=== PATIENT | female | born 1965 | race Caucasian/White ===

== ENCOUNTER → 2020-11-04 | Day surgery (SDC) | payer MEDICARE, OTHER ==
[~2020-11-04] VITALS: Ht 172.7 cm; Wt 81.8 kg
[~2020-11-04] MED LIST: 3IN1 COMMODE; AMBIEN10 MG PO; ASPIRIN81 MG PO; BRILINTA90 MG PO; COLACE100 MG PO; COREG25 MG PO; CYMBALTA 30MG C30 MG PO; FLEXERIL10 MG PO; GLUCOPHAGE1000 MG PO; KLONOPIN0.5 MG PO; LASIX40 MG PO; LINZESS145 MCG PO; LUMIGAN5 ML OU; NEURONTIN600 MG PO; NITROQUIK SL0.4 MG SL; NITROSTAT0.4 MG SL; NORCO 5-325 TA1 EACH PO; NORCO 7.5-3251 EACH PO; NORVASC5 MG PO; NOVOLOG MI100 UNIT/1 SC; ONDANSETRON ODT8 MG PO; PHOSLO667 MG PO; PLAVIX75 MG PO; PRAVACHOL80 MG PO; PROBIOTIC1 EAC1 PO; RENVELA800 MG PO; SYNTHROID125 MCG PO; VENLAFAXINE HC150 MG PO; VICODIN 10/3251 EACH PO; VITAMIN B-125000 MC2 PO; ZANTAC150 MG PO; ZOFRAN4 MG PO
[2020-11-04 09:48] LABS: HCT 30.5 % (37.0-47.0); HGB 9.8 g/dl (12.5-16.0); MCH 32.1 pg (25.0-31.0); MCHC 32.1 g/dL (32.0-36.0); MPV 11.2 fL (6.0-9.5); RBC 3.05 M/uL (4.20-5.40); RDW 13.1 % (11.5-14.0); WBC 11.1 K/uL (4.0-10.5)
[2020-11-04 10:07] LABS: ALBUMIN 2.5 g/dL (3.4-5.0); BILIRUBIN - TOTAL 0.3 mg/dL (0.2-1.0); BUN/CREAT RATIO (CALC) 5.6 RATIO; CREATININE 7.35 mg/dL (0.51-0.95); GLOBULIN (CALCULATION) 3.7 g/dL; POTASSIUM 5.6 mmol/L (3.5-5.1); TOTAL PROTEIN 6.2 g/dL (6.4-8.2)
== END | disposition home or self-care (01) ==
LOC: FAS 08:54
PROVIDERS: Surgery
DX: K80.10 Calculus of gallbladder with chronic cholecystitis without obstruction (principal); K66.0 Peritoneal adhesions (postprocedural) (postinfection); G47.30 Sleep apnea, unspecified; K43.2 Incisional hernia without obstruction or gangrene; L92.8 Other granulomatous disorders of the skin and subcutaneous tissue; I25.10 Atherosclerotic heart disease of native coronary artery without angina pectoris; D64.9 Anemia, unspecified; I12.9 Hypertensive chronic kidney disease with stage 1 through stage 4 chronic kidney disease, or unspecified chronic kidney disease; N18.6 End stage renal disease; E11.22 Type 2 diabetes mellitus with diabetic chronic kidney disease; M32.9 Systemic lupus erythematosus, unspecified; F17.200 Nicotine dependence, unspecified, uncomplicated; F41.8 Other specified anxiety disorders; K21.9 Gastro-esophageal reflux disease without esophagitis; I25.2 Old myocardial infarction; E78.00 Pure hypercholesterolemia, unspecified; E03.9 Hypothyroidism, unspecified; G43.909 Migraine, unspecified, not intractable, without status migrainosus; Z95.5 Presence of coronary angioplasty implant and graft; Z88.8 Allergy status to other drugs, medicaments and biological substances; Z99.2 Dependence on renal dialysis; Z79.82 Long term (current) use of aspirin
CPT/HCPCS: 36415; 74300; 80053; C1758; J1100; J1170; J2250; J2270; J2405; J2704; J2710; J3010; J7030; Q9967

== ENCOUNTER 2021-01-11 11:19 | Emergency (ER) | payer MEDICARE, OTHER ==
[2021-01-11] MEDS ORDERED: NORCO 5-325 TA1 EACH PO (12:31)
== END 2021-01-11 12:58 | disposition home or self-care (01) ==
LOC: FER 11:19
DX: M23.91 Unspecified internal derangement of right knee (principal); M25.461 Effusion, right knee; M25.551 Pain in right hip; I10 Essential (primary) hypertension; E11.40 Type 2 diabetes mellitus with diabetic neuropathy, unspecified; Z99.2 Dependence on renal dialysis; Z95.5 Presence of coronary angioplasty implant and graft; Z88.8 Allergy status to other drugs, medicaments and biological substances; Z91.041 Radiographic dye allergy status
CPT/HCPCS: 73502; 73564

== ENCOUNTER 2021-07-04 00:47 | Inpatient (IN) | payer MEDICARE, OTHER ==
[~2021-07-04] VITALS: Ht 172.7 cm; Wt 90.8 kg
[2021-07-04] MEDS ORDERED: ASPIRIN EC81 MG PO (01:13)
[2021-07-04] MEDS ORDERED: COMBIGAN EYE DRO5 ML EYEBOTH (01:14)
[2021-07-04] MEDS ORDERED: COLACE100 MG PO (01:14)
[2021-07-04] MEDS ORDERED: ZESTRIL5 MG PO (01:15)
[2021-07-04] MEDS ORDERED: LASIX80 MG PO (01:15)
[2021-07-04] MEDS ORDERED: ZOLOFT50 MG PO (01:15)
[2021-07-04] MEDS ORDERED: PRILOSEC20 MG PO (01:16)
[2021-07-04 03:26] LABS: BASOPHIL 0.4 % (0-2); EOSINOPHIL 0.1 % (0-5); HGB 9.3 g/dl (12.5-16.0); LYMPHOCYTE 5.9 % (15-48); MCH 31.8 pg (25.0-31.0); MCHC 34.4 g/dL (32.0-36.0); MCV 92.5 fL (78.0-100.0); MONOCYTE 6.4 % (0-12); MPV 10.5 fL (6.0-9.5); NEUTROPHIL 86.5 % (41-80); NRBC 0; PLT 199 K/uL (150-400); RBC 2.92 M/uL (4.20-5.40); RDW 12.4 % (11.5-14.0); WBC 11.5 K/uL (4.0-10.5)
[2021-07-04 03:53] LABS: BILIRUBIN - TOTAL 0.3 mg/dL (0.2-1.0); BUN/CREAT RATIO (CALC) 4.4 RATIO; CREATININE 5.44 mg/dL (0.51-0.95); POTASSIUM 3.9 mmol/L (3.5-5.1)
--- NOTE | 2021-07-04 06:13 | NUR ---
DR. ALLISON WITH NEPHROLOGY CALLED STATING HE WAS TOLD BY [facility] THIS PATIENT WAS BEING TRANSFERRED TO [facility] AND HE ACCEPTED TO DO DIALYSIS THIS WEEKEND WITH THE IMPRESSION PATIENT WAS BEING TRANSFERRED TO [place]. DR. ALLISON STATES HE DOES NOT COME TO [place] ON THE WEEKENDS AND HE WILL NOT WRITE DIALYSIS ORDERS OR SEE THE PATIENT TILL Tuesday07/06/21, BUT WE ARE WELCOMED TO CALL AND ASK QUESTIONS IF NEEDED. HE STATES IF PATIENT NEEDS DIALYSIS THIS WEEKEND, THE PATIENT SHOULD BE TRANSFERRED. PAPER LATCHER NOTIFIED.
[2021-07-04 18:41] LABS: RETICULOCYTE COUNT 1.3 % (1.0-2.0)
[2021-07-04 18:42] LABS: IRON % SATURATION 42.3 %SAT (20-50)
[2021-07-04 19:45] LABS: FOLIC ACID (SERUM) 4.5 ng/mL (8.6-58.9)
[2021-07-05 06:02] LABS: BASOPHIL 0.4 % (0-2); EOSINOPHIL 2.9 % (0-5); HCT 25.7 % (37.0-47.0); HGB 8.7 g/dl (12.5-16.0); LYMPHOCYTE 7.6 % (15-48); MCH 32.2 pg (25.0-31.0); MCHC 33.9 g/dL (32.0-36.0); MCV 95.2 fL (78.0-100.0); MONOCYTE 6.9 % (0-12); MPV 10.8 fL (6.0-9.5); NEUTROPHIL 81.8 % (41-80); NRBC 0; PLT 164 K/uL (150-400); RDW 12.6 % (11.5-14.0); WBC 11.7 K/uL (4.0-10.5)
[2021-07-05 06:19] LABS: CREATININE 7.44 mg/dL (0.51-0.95); MAGNESIUM 2.3 mg/dL (1.8-2.4); PHOSPHORUS 3.5 mg/dL (2.6-4.7); POTASSIUM 4.7 mmol/L (3.5-5.1)
--- NOTE | 2021-07-05 18:30 | NUR ---
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[employer]AR[employer] FACILITATOR DR MIMI ALLISON, ASKING ABOUT ORDERS FOR PATIENT FOR DIALYSIS PRIOR TO [facility], STATES THAT HE WILL BE TO THE FACILITY LATER TO CHECK ON PATIENT 1430 DR ALLISON CALLS BACK TO FLOOR TO STATE THAT HE WILL NOT BE VISITING THE FACILITY AND THAT HE IS UNAWARE IF HE HAS PREIVILIGES AT THIS FACILITY AND THAT HE HAS SPOKEN TO DR IRVIN AND GAVE ORDERS FOR THE PATIENT TO RECIEVE DIALYSIS TONIGHT 07/05/21 ORDERS ARE IN PATIENT PAPER CHART 1700 CALLED [facility] TO CLARIFY THAT THE DIALYSIS WILL BE OCCURING TONIGHT DUE TO HAVING SURGEY IN THE MORNING [facility] [employer] ENGINEER CONFIRMS THAT THEY WILL BE HERE BUT IS UNABLE TO GIVE AN ETA
--- NOTE | 2021-07-06 09:48 | NUR ---
LOOMIS INSERTED AT 0945 BY JENAE CHAPARRO RN. PT WAS EXPLAINED PROCEDURE WITH AT BEDSIDE. LOOMIS WAS 18F INSERTED AND BALLOON INFLATED WITH 10CC SALINE. PT HAS NO COMPLAINTS OF DISCOMFORT OR PAIN. PT VOIDED 100CC UPON INSERTION. URINE IS DARK YELLOW WITHOUT SEDIMENT OR BLOOD. STAT LOCKED TO RIGHT UPPER THIGH. URINE WITH MICRO SENT TO LAB.
[2021-07-06 09:57] LABS: BILIRUBIN NEGATIVE (NEGATIVE); BLOOD NEGATIVE Ery/uL (NEGATIVE); CLARITY CLEAR (CLEAR); COLOR YELLOW (YELLOW); GLUCOSE (U) NORMAL (NORMAL); LEUKOCYTES NEGATIVE Leu/uL (NEGATIVE); NITRITE NEGATIVE (NEGATIVE); PROTEIN 1+ mg/dL (NEGATIVE); UROBILINOGEN 0.2 mg/dL (0.2-1.0); pH 6.5 (5.0-9.0)
[2021-07-06 10:10] LABS: URINARY WBC RARE
[2021-07-06 10:13] LABS: ALBUMIN 2.4 g/dL (3.4-5.0); BILIRUBIN - TOTAL 0.4 mg/dL (0.2-1.0); BUN/CREAT RATIO (CALC) 5.2 RATIO; CREATININE 5.04 mg/dL (0.51-0.95); GLOBULIN (CALCULATION) 3.6 g/dL
[2021-07-06 10:29] LABS: HCT 25.3 % (37.0-47.0); HGB 8.3 g/dl (12.5-16.0); MCH 31.7 pg (25.0-31.0); MCHC 32.8 g/dL (32.0-36.0); MCV 96.6 fL (78.0-100.0); MPV 11.7 fL (6.0-9.5); RBC 2.62 M/uL (4.20-5.40); RDW 12.6 % (11.5-14.0); WBC 8.7 K/uL (4.0-10.5)
[2021-07-06 11:21] LABS: INR 1.12 (0.9-1.2); PROTHROMBIN TIME 13.8 SECONDS (11.8-13.4)
--- NOTE | 2021-07-06 14:30 | NUR ---
07/06/21 Ms. Ma lives alone. She has a wc, rw, and s. chair. Ms. Ma has dialysis in [place] 3 times per week. Ms. Ma will have surgery to repair her hip today. She will decide on SNF vs HH following PT/OT evaluations. Ms. Ma prefers [facility] if she choose SNF.
[2021-07-07 06:13] LABS: BASOPHIL 0.3 % (0-2); HCT 21.8 % (37.0-47.0); HGB 7.2 g/dl (12.5-16.0); LYMPHOCYTE 8.1 % (15-48); MCH 31.6 pg (25.0-31.0); MCV 95.6 fL (78.0-100.0); MONOCYTE 7.9 % (0-12); MPV 11.5 fL (6.0-9.5); NEUTROPHIL 81.3 % (41-80); NRBC 0; PLT 192 K/uL (150-400); RBC 2.28 M/uL (4.20-5.40); RDW 12.6 % (11.5-14.0); WBC 10.5 K/uL (4.0-10.5)
[2021-07-07 06:46] LABS: BUN/CREAT RATIO (CALC) 5.6 RATIO; CREATININE 5.92 mg/dL (0.51-0.95); MAGNESIUM 2.1 mg/dL (1.8-2.4); PHOSPHORUS 4.1 mg/dL (2.6-4.7); POTASSIUM 4.5 mmol/L (3.5-5.1)
--- NOTE | 2021-07-07 12:35 | NUR ---
07/07/21 Ms. Ma would like SNF placement as recommended by therapy. Placement has been initiated.
--- NOTE | 2021-07-07 16:16 | NUR ---
07/07/21 [facility] has agreed to accept patient. A new COVID test is required within 72 hours of admission.
[2021-07-08 04:49] LABS: BASOPHIL 0.4 % (0-2); EOSINOPHIL 3.9 % (0-5); LYMPHOCYTE 15.2 % (15-48); MCH 31.3 pg (25.0-31.0); MCV 94.8 fL (78.0-100.0); MONOCYTE 9.6 % (0-12); MPV 11.1 fL (6.0-9.5); NEUTROPHIL 70.7 % (41-80); NRBC 0; PLT 212 K/uL (150-400); RBC 2.11 M/uL (4.20-5.40); RDW 12.4 % (11.5-14.0); WBC 8.5 K/uL (4.0-10.5)
[2021-07-08 04:51] LABS: HGB 6.6 g/dl (12.5-16.0)
[2021-07-08 05:38] LABS: ALBUMIN 2.2 g/dL (3.4-5.0); BILIRUBIN - TOTAL 0.4 mg/dL (0.2-1.0); CREATININE 7.3 mg/dL (0.51-0.95); GLOBULIN (CALCULATION) 3.7 g/dL; POTASSIUM 4.5 mmol/L (3.5-5.1); TOTAL PROTEIN 5.9 g/dL (6.4-8.2)
[2021-07-09 06:21] LABS: BASOPHIL 0.5 % (0-2); EOSINOPHIL 3.4 % (0-5); HCT 22.9 % (37.0-47.0); HGB 7.7 g/dl (12.5-16.0); LYMPHOCYTE 12.3 % (15-48); MCH 31.8 pg (25.0-31.0); MCHC 33.6 g/dL (32.0-36.0); MCV 94.6 fL (78.0-100.0); MONOCYTE 12.1 % (0-12); MPV 10.9 fL (6.0-9.5); NEUTROPHIL 71.3 % (41-80); NRBC 0; PLT 209 K/uL (150-400); RBC 2.42 M/uL (4.20-5.40); WBC 8.5 K/uL (4.0-10.5)
[2021-07-09 06:43] LABS: ALBUMIN 2.1 g/dL (3.4-5.0); BILIRUBIN - TOTAL 0.3 mg/dL (0.2-1.0); BUN/CREAT RATIO (CALC) 6.1 RATIO; CREATININE 5.11 mg/dL (0.51-0.95); GLOBULIN (CALCULATION) 3.7 g/dL; TOTAL PROTEIN 5.8 g/dL (6.4-8.2)
--- NOTE | 2021-07-09 18:17 | NUR ---
VLADISLAV CRESPO'Fabian AT THIS TIME. ABI CHAIREZ PULLED WITH PRIMARY RN AT BEDSIDE. NO OUTPUT IN BAG. PT DOES NOT C/O PAIN OR DISCOMFORT.
[2021-07-10 06:15] LABS: BASOPHIL 0.3 % (0-2); EOSINOPHIL 4.3 % (0-5); HCT 22.4 % (37.0-47.0); HGB 7.5 g/dl (12.5-16.0); LYMPHOCYTE 10.8 % (15-48); MCH 32.2 pg (25.0-31.0); MCHC 33.5 g/dL (32.0-36.0); MCV 96.1 fL (78.0-100.0); MONOCYTE 9.5 % (0-12); MPV 10.9 fL (6.0-9.5); NEUTROPHIL 74.5 % (41-80); NRBC 0; PLT 238 K/uL (150-400); RBC 2.33 M/uL (4.20-5.40); WBC 9.1 K/uL (4.0-10.5)
[2021-07-10 06:40] LABS: BILIRUBIN - TOTAL 0.3 mg/dL (0.2-1.0); BUN/CREAT RATIO (CALC) 6.6 RATIO; CREATININE 6.67 mg/dL (0.51-0.95); GLOBULIN (CALCULATION) 3.7 g/dL; POTASSIUM 4.2 mmol/L (3.5-5.1); TOTAL PROTEIN 5.7 g/dL (6.4-8.2)
[2021-07-10] MEDS ORDERED: ELIQUIS2.5 MG PO (10:03)
[2021-07-10] MEDS ORDERED: ISOSORBIDE MONO30 MG PO (10:03)
[2021-07-10] MEDS ORDERED: FEOSOL325 MG PO (10:03)
--- NOTE | 2021-07-10 10:37 | NUR ---
07/10/21 Patient will require EMS for transport to [place] today. Family was educated to the ABN form.
[2021-07-11] MEDS ORDERED: NORCO 5-325 TA1 EACH PO (18:30)
--- NOTE | 2021-07-11 20:47 | NUR ---
2030 TRANSPORTED [facility]IA EMS
== END 2021-07-11 20:30 | DRG 480 ==
LOC: FTCU 00:47
PROVIDERS: Family Medicine; Legal Medicine; Nurse Anesthetist, Certified Registered; Nurse Practitioner; ADMIT Internal Medicine
PROC: 5A1D70Z Performance of Urinary Filtration, Intermittent, Less than 6 Hours Per Day (ICD-10-PCS; principal; 2021-07-05)
PROC: 0QS604Z Reposition Right Upper Femur with Internal Fixation Device, Open Approach (ICD-10-PCS; 2021-07-06)
PROC: 5A1D70Z Performance of Urinary Filtration, Intermittent, Less than 6 Hours Per Day (ICD-10-PCS; 2021-07-07)
PROC: 5A1D70Z Performance of Urinary Filtration, Intermittent, Less than 6 Hours Per Day (ICD-10-PCS; 2021-07-10)
DX: S72.141A Displaced intertrochanteric fracture of right femur, initial encounter for closed fracture (principal); N18.6 End stage renal disease; J96.01 Acute respiratory failure with hypoxia; G92.8 Other toxic encephalopathy; I12.0 Hypertensive chronic kidney disease with stage 5 chronic kidney disease or end stage renal disease; D63.1 Anemia in chronic kidney disease; Z20.822 Contact with and (suspected) exposure to COVID-19; E89.0 Postprocedural hypothyroidism; I25.10 Atherosclerotic heart disease of native coronary artery without angina pectoris; E10.22 Type 1 diabetes mellitus with diabetic chronic kidney disease; E10.40 Type 1 diabetes mellitus with diabetic neuropathy, unspecified; H40.9 Unspecified glaucoma; G40.909 Epilepsy, unspecified, not intractable, without status epilepticus; I25.2 Old myocardial infarction; Z99.2 Dependence on renal dialysis; Z95.5 Presence of coronary angioplasty implant and graft; Z90.89 Acquired absence of other organs; Z98.890 Other specified postprocedural states; W19.XXXA Unspecified fall, initial encounter; Y92.009 Unspecified place in unspecified non-institutional (private) residence as the place of occurrence of the external cause; T41.45XA Adverse effect of unspecified anesthetic, initial encounter; E87.70 Fluid overload, unspecified; Z90.710 Acquired absence of both cervix and uterus; Z90.49 Acquired absence of other specified parts of digestive tract; Z83.3 Family history of diabetes mellitus; Z82.49 Family history of ischemic heart disease and other diseases of the circulatory system; Z82.1 Family history of blindness and visual loss; Z84.89 Family history of other specified conditions; Z91.041 Radiographic dye allergy status; Z79.82 Long term (current) use of aspirin; Z79.899 Other long term (current) drug therapy; Z79.890 Hormone replacement therapy
CPT/HCPCS: 36415; 36430; 71045; 73501; 76000; 80048; 80053; 81001; 82607; 82746; 82962; 83540; 83550; 83735; 84100; 84484; 85025; 85610; 85730; 86850; 86900; 86901; 86922; 94010; 94762; 97110; 97163; 97166; 97530; 97530-GP; 97535; C1713; J0690; J0697; J1170; J1644; J2250; J2405; J2704; J2710; J2795; J3010; J7030; J7120; P9016; Q5106; U0002

== ENCOUNTER 2022-03-29 01:49 | Emergency (ER) | payer MEDICARE ==
[~2022-03-29 01:49] MED LIST changes: +ASPIRIN EC81 MG PO; +CERTAVITE SR-A1 EACH PO; +COMBIGAN EYE DRO5 ML EYEBOTH; +ELIQUIS2.5 MG PO; +FEOSOL325 MG PO; +HUMULIN R100 UNIT/2 SC; +ISOSORBIDE MONO30 MG PO; +LASIX80 MG PO; +LINZESS72 MCG PO; +LOPRESSOR25 MG PO; +PRILOSEC20 MG PO; +PROTONIX40 MG PO; +SENOKOT8.6 MG PO; +ZESTRIL5 MG PO; +ZOFRAN4 M1 PO; +ZOLOFT50 MG PO
[2022-03-29 02:50] LABS: BASOPHIL 0.3 % (0-2); EOSINOPHIL 1.7 % (0-5); HCT 26.1 % (37.0-47.0); HGB 8.4 g/dl (12.5-16.0); LYMPHOCYTE 7.2 % (15-48); MCH 32.2 pg (25.0-31.0); MCHC 32.2 g/dL (32.0-36.0); MONOCYTE 4.9 % (0-12); MPV 9.7 fL (6.0-9.5); NEUTROPHIL 84.1 % (41-80); NRBC 0; PLT 307 K/uL (150-400); RBC 2.61 M/uL (4.20-5.40); RDW 13.9 % (11.5-14.0); WBC 14.8 K/uL (4.0-10.5)
[2022-03-29 03:13] LABS: ALBUMIN 2.8 g/dL (3.4-5.0); BILIRUBIN - TOTAL 0.3 mg/dL (0.2-1.0); CREATININE 8.02 mg/dL (0.51-0.95); GLOBULIN (CALCULATION) 3.9 g/dL; TOTAL PROTEIN 6.7 g/dL (6.4-8.2)
[2022-03-29 03:54] LABS: CORONAVIRUS 2019 SARS-COV-2 NEGATIVE (NEGATIVE); INFLUENZA A NAA NEGATIVE (NEGATIVE)
[2022-03-29] MEDS ORDERED: OXY-IR 5MG5 MG PO (05:02)
== END 2022-03-29 05:10 | disposition home or self-care (01) ==
LOC: FER 01:49
PROVIDERS: Emergency Medicine
DX: S32.591A Other specified fracture of right pubis, initial encounter for closed fracture (principal); M54.9 Dorsalgia, unspecified; I25.10 Atherosclerotic heart disease of native coronary artery without angina pectoris; I12.9 Hypertensive chronic kidney disease with stage 1 through stage 4 chronic kidney disease, or unspecified chronic kidney disease; N18.9 Chronic kidney disease, unspecified; Z20.822 Contact with and (suspected) exposure to COVID-19; Z91.041 Radiographic dye allergy status; W01.0XXA Fall on same level from slipping, tripping and stumbling without subsequent striking against object, initial encounter; Y92.009 Unspecified place in unspecified non-institutional (private) residence as the place of occurrence of the external cause
CPT/HCPCS: 36415; 72131; 72192; 73502; 80053; 85025; J1170; U0002

== ENCOUNTER 2022-04-27 08:28 | Emergency (ER) | payer MEDICARE ==
[~2022-04-27 08:28] MED LIST changes: +OXY-IR 5MG5 MG PO
[2022-04-27 08:51] LABS: BASOPHIL 0.4 % (0-2); EOSINOPHIL 1.5 % (0-5); HCT 32.7 % (37.0-47.0); HGB 10.4 g/dl (12.5-16.0); LYMPHOCYTE 6.5 % (15-48); MCH 31.7 pg (25.0-31.0); MCHC 31.8 g/dL (32.0-36.0); MCV 99.7 fL (78.0-100.0); MONOCYTE 3.5 % (0-12); MPV 10.1 fL (6.0-9.5); NEUTROPHIL 87.5 % (41-80); NRBC 0; PLT 311 K/uL (150-400); RBC 3.28 M/uL (4.20-5.40); RDW 14.7 % (11.5-14.0); WBC 18.5 K/uL (4.0-10.5)
[2022-04-27 09:03] LABS: INR 1.19 (0.9-1.2); PROTHROMBIN TIME 14.7 SECONDS (11.9-13.9); PTT 25.1 SECONDS (24.9-34.6)
[2022-04-27 09:21] LABS: BILIRUBIN - TOTAL 0.5 mg/dL (0.2-1.0); BUN/CREAT RATIO (CALC) 8.3 RATIO; CREATININE 8.53 mg/dL (0.51-0.95); GLOBULIN (CALCULATION) 4.4 g/dL; POTASSIUM 5.1 mmol/L (3.5-5.1); TOTAL PROTEIN 7.4 g/dL (6.4-8.2)
[2022-04-27 09:55] LABS: LACTIC ACID 1.4 mmol/L (0.4-1.9)
[2022-04-27 10:01] LABS: CORONAVIRUS 2019 SARS-COV-2 NEGATIVE (NEGATIVE); INFLUENZA A NAA NEGATIVE (NEGATIVE)
[2022-04-27 11:29] LABS: BILIRUBIN NEGATIVE (NEGATIVE); BLOOD 3+ Ery/uL (NEGATIVE); CLARITY HAZY (CLEAR); COLOR YELLOW (YELLOW); GLUCOSE (U) NORMAL (NORMAL); LEUKOCYTES 1+ Leu/uL (NEGATIVE); NITRITE POSITIVE (NEGATIVE); PROTEIN 2+ mg/dL (NEGATIVE); SPECIFIC GRAVITY 1.015 (1.001-1.030); UROBILINOGEN 0.2 mg/dL (0.2-1.0); pH 7.5 (5.0-9.0)
[2022-04-27 11:44] LABS: BACTERIA TRACE; SQUAMOUS EPITHELIAL CELLS RARE; URINARY RBC 20-50; URINARY WBC TNTC
== END 2022-04-27 18:33 | disposition other institution (70) ==
LOC: FER 08:28
PROVIDERS: Internal Medicine
DX: I13.2 Hypertensive heart and chronic kidney disease with heart failure and with stage 5 chronic kidney disease, or end stage renal disease (principal); N18.6 End stage renal disease; I50.9 Heart failure, unspecified; N39.0 Urinary tract infection, site not specified; Z87.891 Personal history of nicotine dependence; Z91.041 Radiographic dye allergy status; Z99.2 Dependence on renal dialysis; Z20.822 Contact with and (suspected) exposure to COVID-19
CPT/HCPCS: 36415; 71250; 80053; 81001; 83605; 83690; 83880; 84145; 84484; 85025; 85610; 85730; 87040; 87088; 93005; J2270; J2405; J2543; J7030; U0002

== ENCOUNTER 2022-06-20 18:46 | Emergency (ER) | payer MEDICARE ==
[2022-06-21] MEDS ORDERED: NORCO 5-325 TA1 EACH PO (02:03)
== END 2022-06-20 22:49 | disposition home or self-care (01) ==
LOC: FER 18:46
DX: S42.032A Displaced fracture of lateral end of left clavicle, initial encounter for closed fracture (principal); Z91.041 Radiographic dye allergy status; X50.1XXA Overexertion from prolonged static or awkward postures, initial encounter
CPT/HCPCS: 70450; 72125; 73030; J1885; J2405; J7030